=== PATIENT | male | born 1965 | race African-American/Black ===

== ENCOUNTER 2016-09-19 23:39 | Emergency (ER) | payer MEDICARE, MEDICAID ==
[~2016-09-19] VITALS: Ht 182.9 cm; Wt 52.0 kg
[~2016-09-19 23:39] MED LIST: AMLO10TA2 PO; CLIN150 PO; CLON0.3T PO; MINO10TA PO; NORC5TAB PO
[2016-09-19 23:41] VITALS: BP 175/88; TEMP 99.6; O2SAT 97
--- NOTE | 2016-09-20 00:25 | PD ---
HPI . Abscess Chief Complaint: Skin Problem Time Seen by Provider: 00:14 Travel History International Travel<30 days: No Contact w/Intl Traveler<30days: No Traveled to known affect area: No History of Present Illness HPI Patient presents with the chief complaint of an abscess. He states he's had it for about a week. It is getting progressively worse. There has been no spontaneous drainage. Patient reports associated lymphadenopathy. He states that he has had a similar episode in the past which was drained. He states that that was about a year ago. PFSH Past Medical History Hx Anticoagulant Therapy: No Dialysis: Yes Diminished Hearing: No Hypertension: Yes Renal Failure: Yes Past Surgical History Other Surgery: Yes (FISTULA DAVION ARM) Social History Alcohol Use: No Tobacco Use: Yes (1 PPD) Substance Use: No Allergies-Medications (Allergen,Severity, Reaction): Coded Allergies: No Known Allergies (Unverified , 09/20/16) Reported Meds & Prescriptions Reported Meds & Active Scripts Active Cleocin (Clindamycin HCl) 150 Mg Cap 150 Mg PO Q6H 10 Days [place] (Hydrocodone-Acetaminophen) 5-325 mg Tab 1 Tab PO Q6H PRN Reported Clonidine (Clonidine HCl) 0.3 Mg Tab 0.3 Mg PO BID Amlodipine (Amlodipine Besylate) 10 Mg Tab 10 Mg PO DAILY Minoxidil 10 Mg Tab 10 Mg PO DAILY Review of Systems Except as stated in HPI: all other systems reviewed are Neg General / Constitutional: No: Fever, Chills Skin: Positive Lesions Hematologic/Lymphatic: Positive: Lymph Node Enlargement Physical Exam Narrative GENERAL: Chronically ill-appearing man who is very thin. SKIN: Warm and dry. He has an area of fluctuance and tenderness lateral to his anus on the right. The overlying skin is not red or hot. He has AV shunts in the left upper extremity. HEAD: Atraumatic. Normocephalic. EYES: Pupils equal and round. ENT: No nasal bleeding or discharge. Mucous membranes pink and moist. NECK: Trachea midline. CARDIOVASCULAR: Regular rate and rhythm. RESPIRATORY: No accessory muscle use. GASTROINTESTINAL: Abdomen soft, non-tender, nondistended. MUSCULOSKELETAL: No obvious deformities. No edema. NEUROLOGICAL: Awake and alert. No obvious cranial nerve deficits. Motor grossly within normal limits. Normal speech. PSYCHIATRIC: Appropriate mood and affect; insight and judgment normal. Data Data Last Documented VS Vital Signs Date Time Temp Pulse Resp B/P Pulse Ox O2 Delivery O2 Flow Rate FiO2 09/19/16 23:41 99.6 100 16 175/88 97 Room Air Orders Lidocai-Epi 1%-1:100,000 Inj (Xylocaine- (09/20/16 00:30) MDM Medical Decision Making Medical Screen Exam Complete: Yes Emergency Medical Condition: Yes Differential Diagnosis My differential diagnosis closed but is not limited to abscess, cyst, lipoma Narrative Course Patient presents with a probable abscess to the right of his anus. He has an area of swelling and tenderness which has been present for about a week and which is getting progressively larger. The area is fluctuant. I will I&D it. Procedures Procedure Narrative INCISION AND DRAINAGE OF ABSCESS: The area was prepped and was sterilely draped. A subcutaneous wheal of 1% Xylocaine without epi with a total number 6 mL was used to anesthetize the area properly. A number 11 scalpel was used to make a 1 -cm incision across the area of the abscess. The abscess was drained, complex loculations were broken down, and irrigated with normal saline. Half inch iodoform packing was placed in the wound. Sterile dressing applied. Patient advised to have packing removed in two days. Diagnosis Primary Impression: Perianal abscess Patient Instructions: Abscess (ED), Abscess Incision and Drainage (DC), General Instructions Additional Instructions: Antibiotics as directed. Try to keep the packing in. If the packing inadvertently comes out, start sitting in the tub of water 2-3 times a day. Return here in 2 days for recheck Med/Other Pt SpecificInfo: Prescription(s) given Scripts Hydrocodone-Acetaminophen ([place])5-325 mg Tab1 Tab PO Q4H PRN (PAIN) #12 TAB Ref 0 Prov:Angela Quiles MD 09/20/16 Sulfamethoxazole-Trimethoprim (Bactrim DS)800-160 Mg Tab1 Tab PO BID #20 TAB Ref 0 Prov:Angela Quiles MD 09/20/16 Disposition: 01 DISCHARGE HOME Condition: Stable Angela Quiles MD Sep 20, 2016 00:25
[2016-09-20] MEDS ORDERED: LIDOCAINE 1%/EPINEPHrine 1:100,000 SOLN 20 ML VIAL INFIL ONE (00:30)
[2016-09-20] MEDS ORDERED: NORC5TAB PO (00:43)
[2016-09-20] MEDS ORDERED: BACT800T5 PO ×2 (00:43→00:48)
[2016-09-20] MEDS ORDERED: SULFAMETHOXAZOLE-TRIMETHOPRIM DS 800-160 MG TAB PO ONE (00:45)
[2016-09-20] MEDS ORDERED: ACETAMINOPHEN/HYDROcodone 325 MG/5 MG TAB PO ONE (00:45)
== END 2016-09-20 01:01 | disposition home or self-care (01) ==
LOC: NEPD 23:39
DX: K61.0 Anal abscess (principal); R59.1 Generalized enlarged lymph nodes; I12.9 Hypertensive chronic kidney disease with stage 1 through stage 4 chronic kidney disease, or unspecified chronic kidney disease; N18.9 Chronic kidney disease, unspecified; F17.210 Nicotine dependence, cigarettes, uncomplicated; Z79.899 Other long term (current) drug therapy
CPT/HCPCS: 10061

== ENCOUNTER 2016-09-23 04:15 | Emergency (ER) | payer MEDICARE, MEDICAID ==
[~2016-09-23 04:15] MED LIST changes: +BACT800T5 PO
[2016-09-23 04:16] VITALS: BP 172/90; PULSE 84; RESP 16; TEMP 99; O2SAT 100
== END 2016-09-23 05:08 | disposition left against medical advice (07) ==
LOC: NEPD 04:15
DX: Z03.89 Encounter for observation for other suspected diseases and conditions ruled out (principal)
CPT/HCPCS: 99281